=== PATIENT | female | born 1970 | race Caucasian/White ===

== ENCOUNTER → 2020-10-03 10:54 | Outpatient (CLI) | payer OTHER, SELFPAY ==
--- NOTE | ~2020-10-03 | MM_ITS ---
EXAMINATION: MM screening pantera BI w ney HISTORY: Screening TECHNIQUE: Craniocaudal and mediolateral oblique 3-D tomosynthesis images were obtained and synthetic 2-D images were generated. CAD analysis was submitted and interpreted. COMPARISON: Comparison to multiple prior studies sequentially, with oldest reviewed study dated 05/27. BREAST PARENCHYMAL COMPOSITION: The breasts are heterogeneously dense, which may obscure small masses . FINDINGS: There is no evidence of suspicious mass, calcification, or architectural distortion to sugg est malignancy in either breast. There has been no suspicious interval change. IMPRESSION: 1. No mammographic evidence of malignancy. 2. Recommend routine screening mammography in one year. BI-RADS Category 1: Negative Reviewed, dictated and finalized at location A.
== END ==
PROVIDERS: PCP Internal Medicine; Visit Provider Internal Medicine
DX: Z12.31 Encounter for screening mammogram for malignant neoplasm of breast (principal)
CPT/HCPCS: 77063; 77067

== ENCOUNTER 2021-04-13 15:37 | Observation (INO) | payer OTHER, SELFPAY ==
--- NOTE | ~2021-04-13 | XR_ITS ---
XR chest 1V portable DATE: 04/13/2021 17:28 INDICATION: Right lower quadrant abdominal pain. Nausea, vomiting, diarrhea. Headache. TECHNIQUE: Portable AP chest on 04/13/2021 at 1724 hours COMPARISON: None FINDINGS: Heart size is normal. No hilar or mediastinal enlargement. The lungs are hyperinflated but clear of infiltrate or consolidation. No pleural effusion or pulmonary vascular congestion or pneumot horax. IMPRESSION: Bilateral hyperinflation; no active cardiopulmonary disease Reviewed, dictated and finalized at location A. C STORE MANAGER
--- NOTE | ~2021-04-13 | CT_ITS ---
EXAMINATION: CT abdomen pelvis w con DATE: 04/13/2021 19:26 INDICATION: Right lower quadrant abdominal pain. Nausea, vomiting, diarrhea. TECHNIQUE: Computed tomography (CT) of the abdomen and pelvis was performed with 100 cc Omnipaque 350 intravenous contrast. Automated exposure control and iterative reconstruction technique were employe d. Exam dose: 272.82 mGy-cm total exam DLP. COMPARISON: None. FINDINGS: The lung bases are clear. Normal heart size. No pericardial or pleural effusion. There are occasional hepatic cysts measuring up to proxy 1.3 cm. The gallbladder is present. No gallb ladder wall thickening or pericholecystic fluid or fat stranding. No bile duct or pancreatic duct dil atation. Normal splenic size. No pancreatic mass lesion or calcification. Normal morphology of the adrenal glands. There is mild inhomogeneous enhancement of the right kidney and urothelial thickening of the right re nal pelvis and proximal right ureter suggesting possible pyelonephritis. There is moderate diffuse th ickening of the urinary bladder wall, suggesting possible cystitis.. Correlation with urinalysis is r ecommended. No urinary tract calculus or hydroureteronephrosis is detected. The uterus is present. There are prominent left adnexal vessels and left gonadal vein. Normal caliber of the abdominal aorta. No intraperitoneal or retroperitoneal or pelvic mass lesion or adenopathy or ascites. There are some fluid containing nondilated small bowel segments and occasional small bowel air-fluid levels which might represent mild adynamic ileus or enteritis. There is mild left and right colonic diverticulosis; no CT evidence of diverticulitis is noted. Normal appendix. No bowel obstruction or intraperitoneal free air is detected. There is a small amount of free fluid in the posterior cul-de-sac, possibly physiologic. Very small fat-containing umbilical hernia. Included skeletal structures are unremarkable. IMPRESSION: Bilateral heterogeneous enhancement of the right kidney and mild urothelial thickening o f the right renal pelvis and proximal ureter, suggesting possible acute pyelonephritis Possible cystitis; recommend clinical correlation, urinalysis Normal appendix Mild diverticulosis of left and right colon; no CT evidence of diverticulitis Occasional hepatic cysts Reviewed, dictated and finalized at Location [facility]. Reviewed, dictated and finalized at location A. CLERK IMPRESSION: Bilateral heterogeneous enhancement of the right kidney and mild u rothelial thickening of the right renal pelvis and proximal ureter, suggesting possible acute pyelonephritis Possible cystitis; recommend clinical correlation, urinalysis Normal appendix Mild diverticulosis of left and right colon; no CT evidence of diverticulitis Occasional hepatic cysts
[2021-04-13 15:54] VITALS: BP 92/50; PULSE 74; RESP 14; TEMP 36.4; O2SAT 99
[2021-04-13 17:33] LABS: Hemoglobin 12.7 g/dL (12.0-15.0); Mean Corpuscular HGB Conc 34.3 g/dl (32-36); Mean Corpuscular Hemoglobin 30.8 pg (26-34); Mean Corpuscular Volume 89.8 fl (80-100); Red Blood Count 4.12 M/mm3 (4.2-5.4); Red Cell Distribution Width 11.9 % (11.5-14.5); White Blood Count 14.1 K/mm3 (4.5-10.0)
[2021-04-13 17:34] LABS: Basophils Percent Auto 0.2 % (0.2-1.2); Eosinophils Percent Auto 0.2 % (0-4.4); Immature Granulocyte Absolute 0.06 K/mm3 (0.00-0.031); Immature Granulocyte Percent A 0.4 % (0-0.5); Lymphocytes Percent Auto 10.7 % (18.3-44.2); Mean Platelet Volume 9.5 fl (7.4-10.4); Monocytes Absolute Auto 1.2 K/mm3 (0.1-0.6); Monocytes Percent Auto 8.7 % (2.6-8.5); Neutrophils Absolute Auto 11.2 K/mm3 (1.3-6.7); Neutrophils Percent Auto 79.8 % (45.5-73.1); Platelet Count Result 268 k/mm3 (150-375)
[2021-04-13 17:46] LABS: Add Urine Microscopic? YES; Alanine Aminotransferase 14 U/L (4-35); Albumin Level 4.6 g/dL (3.5-5.1); Alkaline Phosphatase 93 U/L (38-126); Anion Gap 11 mmol/L (8-16); Appearance Urine Cloudy (Clear); Aspartate Amino Transferase 22 U/L (14-36); Bacteria Urine 2+ /hpf; Bilirubin Urine Negative (Negative); Bilirubin,Total 1.2 mg/dL (0.2-1.3); Blood Urea Nitrogen 10 mg/dL (7-17); Blood Urine 1+ (Negative); Calcium 9.1 mg/dL (8.4-10.2); Carbon Dioxide 26 mmol/L (22-30); Chloride 96 mmol/L (98-107); Color Urine Yellow (Yellow); Estimated CRCL calculation 78 ml/min; Estimated Glomerular Filt Rate > 60; Glucose 123 mg/dL (65-110); Glucose Urine UA Negative (Negative); Ketones Urine Negative (Negative); Leukocyte Esterase Ur 3+ LEU/UL (Negative); Lipase 37 U/L (23-300); Mucus Urine Rare /lpf; Nitrate Urine Positive (Negative); Potassium 3.4 mmol/L (3.4-5.0); Protein Urine 1+ mg/dL (Negative); Sodium 133 mmol/L (137-145); Specific Grav Ur 1.011 (1.001-1.035); Urobilinogen Urine Negative mg/dL (<2.0); WBC Urine >75 /hpf
[2021-04-13 17:47] VITALS: BP 80/47; PULSE 73; RESP 18; O2SAT 100
[2021-04-13] MEDS: ONDANSETRON INJ 4 MG/2 ML VIAL IV PUSH ×2 (17:51→21:01)
[2021-04-13] MEDS: SODIUM CHLORIDE 0.9% IV 1,000 ML 999 ML IV CONT ×2 (17:51)
[2021-04-13 18:35] LABS: Beta HCG Quantitative < 2.39 mIU/ML
--- NOTE | 2021-04-13 18:48 | ED.GENADULT ---
HPI - General Adult General Chief complaint: Abdominal Pain <Joey Pacheco PA-C - Last Filed: 04/13/21 21:26> Stated complaint: Abd pain, NVD <DOMINIC Reynaga Last Filed: 04/13/21 21:26> Time Seen by Provider: 04/13/21 16:56 <Joey Pacheco PA-C - Last Filed: 04/13/21 21:26> Source: patient <DOMINIC Reynaga Last Filed: 04/13/21 21:26> Mode of arrival: ambulatory <DOMINIC Reynaga Last Filed: 04/13/21 21:26> Limitations: no limitations <DOMINIC Reynaga Last Filed: 04/13/21 21:26> History of Present Illness HPI narrative: Patient is a 51-year-old female with chief complaint of 3 days of headache, nausea, vomiting, right lower quadrant abdominal pain. Patient reports the abdominal pain is intermittent. She denies any prior abdominal issues or surgeries. Patient denies eating or drinking change in her symptoms. Patient is not vaccinated against Covid. Patient has not received her flu shot. Patient denies chance of in reports tubal ligation. Patient reports he has naturally low BPs. <Joey Pacheco PA-C - Last Filed: 04/13/21 21:26> Related Data Home medications: Home Medications Medication Instructions Recorded Confirmed No Home Medications 04/13/21 04/13/21 <Joey Pacheco PA-C - Last Filed: 04/13/21 21:26> Allergies/adverse reactions: Allergies Allergy/AdvReac Type Severity Reaction Status Date / Time prednisone Allergy Rash Verified 04/13/21 17:51 <DOMINIC Reynaga Last Filed: 04/13/21 21:26> Review of Systems Review of Systems: CONSTITUTIONAL: Denies fever, chills, or sweats. EYES: Denies visual changes, redness, or discharge. ENT: Denies rhinorrhea, congestion, sore throat, or otalgia. CARDIOVASCULAR: Denies chest pain, palpitations, or edema. RESPIRATORY: Denies cough or dyspnea. GASTROINTESTINAL: Reports abdominal pain, nausea, vomiting, or diarrhea. GENITOURINARY: Denies dysuria or hematuria. SKIN: Denies rash or itching. MUSCULOSKELETAL: Denies back pain, joint pain, or myalgia. NEUROLOGIC: Reports headache, denies numbness, dizziness, or weakness. PSYCHIATRIC: Denies anxiety or depression. <Joey Pacheco PA-C - Last Filed: 04/13/21 21:26> Exam Narrative: GENERAL: Well-appearing, well-nourished, and in no acute distress. HEAD: Normocephalic, atraumatic. EYES: PERRLA and EOMI. CHEST: Clear to auscultation. No respiratory distress. No wheezes rales or rhonchi HEART: Regular rate and rhythm. No murmur heard. Normal peripheral pulses. ABDOMEN: Soft, mild tender to RLQ, no guarding or rebound, nondistended, normal active bowel sounds. EXTREMITIES: Normal range of motion. No edema. SKIN: Warm, dry, no rash. NEURO: No focal deficits. Alert and oriented x3. PSYCH: Normal mood and affect. <Joey Pacheco PA-C - Last Filed: 04/13/21 21:26> Course Vital Signs Vital signs: Vital Signs Temperature 36.4 C 04/13/21 15:54 Pulse Rate 74 04/13/21 15:54 Respiratory Rate 14 04/13/21 15:54 Blood Pressure 92/50 L 04/13/21 15:54 Pulse Oximetry 99 04/13/21 15:54 Temperature 36.4 C 04/13/21 15:54 Pulse Rate 65 04/13/21 19:00 Respiratory Rate 18 04/13/21 19:00 Blood Pressure 89/55 L 04/13/21 19:00 Pulse Oximetry 96 04/13/21 19:00 <Joey Pacheco PA-C - Last Filed: 04/13/21 21:26> Medical Decision Making MDM Narrative Medical decision making narrative: Discussed with patient UTI findings. Patient reports that she just finished a course of Bactrim and thought that her UTI had resolved. Patient also reports that she had been having pain in her upper flank that is not present currently but was present and causing her to vomit yesterday. Now concern for kidney stone or pyelonephritis. Discussed with patient the need for CT. initially she refused but now she is in agreement to perform CT after discussion of risk and benefits. CT shows suspected pyelo. Patient h
[2021-04-13 19:00] VITALS: BP 89/55; PULSE 65; RESP 18; O2SAT 96
[2021-04-13] MEDS: cefTRIAXone 2 GM in SODIUM CHLORIDE 0.9% IV 100 ML 200 ML IVPB (19:43)
[2021-04-13 22:00] VITALS: BP 85/41; PULSE 101; RESP 18; O2SAT 99
[2021-04-13 23:44] LABS: SARS-CoV-2 RNA PCR Negative
[2021-04-14] VITALS (7 sets, daily range): BP systolic 90–110; BP diastolic 47–66; PULSE 67–84; RESP 14–18; TEMP 35.8–36.6; O2SAT 98–100; BMI 23.0
[2021-04-14 00:40] LABS: Lactic Acid Reflex < 0.5 mmol/L (0.7-2.1)
[2021-04-14] MEDS: SODIUM CHLORIDE 0.9% IV 1,000 ML 125 ML IV CONT ×2 (01:16→16:27)
--- NOTE | 2021-04-14 04:04 | PM.IMHP ---
H&P: HPI History of Present Illness Date/Time: 04/14/21 00:30 Chief Complaint: Right lower abdominal pain Narrative: 51-year-old female previously healthy who presented to the ER with right lower quadrant abdominal pain. The patient reports that she initially began having symptoms on the when she having right lower abdomen. Then the following days she began having dysuria, increased urinary frequency and urinary urgency. She contacted her primary care physician who prescribed her Bactrim. She did not have her urine tested. She reported that her symptoms had initially improved and she completed her antibiotics on the . Unfortunately, the next day she began having dysuria again. It was also accompanied by nausea, vomiting and diarrhea. She called her primary care physician who directed her to come to the ER to be checked for possible appendicitis. By the time she arrived to the ER she is no longer having any right lower quadrant abdominal pain. She denied having any eliciting or relieving factors for her symptoms. She did have some chills on Saturday but has not had any since then. She has been afebrile since arrival to the ER. On arrival to the ER she was noted to be hypotensive with systolic blood pressures between 80 and 90. The patient reports that she chronically has low blood pressures in these ranges. She denies any lightheadedness with standing or any episodes of syncope. She reports that she will occasionally have a urinary tract infection but is been at least 3 years since her last urinary tract infection. She is not currently sexually active. Review of Systems Review of Systems: 12 systems were reviewed with pertinent positives and negatives per HPI. Except as documented in the HPI, all other systems were reviewed and are negative. 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 Smoking status: Never smoker Alcohol intake: never Substance use type: does not use Spiritual care concerns: No Meds Home Medications and Allergies Home Medications Medication Instructions Recorded Confirmed Type guaifenesin [Mucinex] 1,200 mg PO DAILY PRN 04/14/21 04/14/21 History loratadine-pseudoephedrine 1 tablet PO DAILY PRN 04/14/21 04/14/21 History [Claritin-D 12 Hour] Allergies Allergy/AdvReac Type Severity Reaction Status Date / Time prednisone Allergy Rash Verified 04/13/21 17:51 Vital Signs Vital Signs - 24 hr 04/13/21 15:54 04/13/21 17:47 04/13/21 19:00 Temperature 97.6 F Pulse Rate 74 73 65 Respiratory Rate 14 18 18 Blood Pressure 92/50 L 80/47 L 89/55 L Pulse Oximetry 99 100 96 04/13/21 22:00 04/14/21 01:41 Temperature Pulse Rate 101 H 84 Respiratory Rate 18 18 Blood Pressure 85/41 L 91/51 L Pulse Oximetry 99 100 Exam Narrative: PHYSICAL EXAM: WEIGHT 59.1 kg BMI 20.4 General: No acute distress, well-developed well-nourished HEENT: Mucous membranes are tacky, no oral pharyngeal erythema, no scleral icterus, pupils are equal and reactive Respiratory: Clear to auscultation bilaterally, no increased work of breathing, no CVA tenderness Cardiovascular: Regular rate, regular rhythm, 2+ bilateral radial pedal pulses Gastrointestinal: Soft, nontender, nondistended, positive bowel sounds Skin: Mild pallor, non jaundice Musculoskeletal: No clubbing, cyanosis or edema Neurological: Alert and oriented, speech is clear, no facial asymmetry Psychiatric: Appropriate mood and affect, pleasant and cooperative :
[2021-04-14] MEDS: ONDANSETRON INJ 4 MG/2 ML VIAL IV PUSH (05:48)
--- NOTE | 2021-04-14 07:25 | PC.NURSE ---
critical care unit manager has order pt room tray at [id number]
--- NOTE | 2021-04-14 07:53 | PC.NURSE ---
unit controller delivered room tray at 0745. pt is sleeping. pt asked to leave tray
[2021-04-14 09:20] LABS: Hematocrit 32.5 % (37.0-47.0); Hemoglobin 10.7 g/dL (12.0-15.0); Mean Corpuscular HGB Conc 32.9 g/dl (32-36); Mean Corpuscular Hemoglobin 29.8 pg (26-34); Mean Corpuscular Volume 90.5 fl (80-100); Mean Platelet Volume 9.4 fl (7.4-10.4); Platelet Count Result 222 k/mm3 (150-375); Red Blood Count 3.59 M/mm3 (4.2-5.4); Red Cell Distribution Width 11.9 % (11.5-14.5); White Blood Count 10.5 K/mm3 (4.5-10.0)
[2021-04-14] MEDS: ENOXAPARIN 40 MG/0.4 ML SYRINGE SUB-Q (09:27)
[2021-04-14 09:30] LABS: Anion Gap 6 mmol/L (8-16); Blood Urea Nitrogen 8 mg/dL (7-17); Calcium 8.3 mg/dL (8.4-10.2); Carbon Dioxide 23 mmol/L (22-30); Chloride 108 mmol/L (98-107); Estimated CRCL calculation 90 ml/min; Estimated Glomerular Filt Rate > 60; Glucose 145 mg/dL (65-110); Potassium 3.5 mmol/L (3.4-5.0); Sodium 137 mmol/L (137-145)
[2021-04-14] MEDS: ACETAMINOPHEN 325 MG TABLET 650 MG PO (13:13)
[2021-04-15] MEDS: SODIUM CHLORIDE 0.9% IV 1,000 ML 125 ML IV CONT ×2 (01:19→08:28)
[2021-04-15 03:25] VITALS: BP 105/49; PULSE 78; RESP 18; TEMP 36.2; O2SAT 100
[2021-04-15] MEDS: ENOXAPARIN 40 MG/0.4 ML SYRINGE SUB-Q (08:30)
--- NOTE | 2021-04-15 10:26 | PM.DS ---
DS: Admitting Diagnosis Discharge Date 04/15/2021 Admitting Diagnosis Right lower abdominal pain DS: Discharge Diagnosis Discharge Diagnosis (1) Pyelonephritis: Code(s): N12 - Tubulo-interstitial nephritis, not specified as acute or chronic Status: Acute Assessment and Plan: Right-sided pyelonephritis with failure of outpatient therapy with Bactrim. Received empiric antibiotic therapy with Rocephin Urine cultures-->Escherichia Coli Blood cultures NGTD, antibiotic therapy had already been administered IV fluid hydration. Labs stable Home with oral levaquin (2) Chronic asymptomatic hypotension: Code(s): I95.89 - Other hypotension Status: Acute Assessment and Plan: Patient remains asymptomatic BP 90s-100s/40s-60s DS: Summary Hospital Course Hospital Course: 51-year-old female previously healthy who presented to the ER with right lower quadrant abdominal pain. The patient reports that she initially began having symptoms on the when she having right lower abdomen. Then the following days she began having dysuria, increased urinary frequency and urinary urgency. She contacted her primary care physician who prescribed her Bactrim. She did not have her urine tested. She reported that her symptoms had initially improved and she completed her antibiotics on the . Unfortunately, the next day she began having dysuria again. It was also accompanied by nausea, vomiting and diarrhea. She called her primary care physician who directed her to come to the ER to be checked for possible appendicitis. By the time she arrived to the ER she is no longer having any right lower quadrant abdominal pain. She denied having any eliciting or relieving factors for her symptoms. She did have some chills on Saturday but has not had any since then. She has been afebrile since arrival to the ER. On arrival to the ER she was noted to be hypotensive with systolic blood pressures between 80 and 90. The patient reports that she chronically has low blood pressures in these ranges. She denies any lightheadedness with standing or any episodes of syncope. She reports that she will occasionally have a urinary tract infection but is been at least 3 years since her last urinary tract infection. She is not currently sexually active. The patient has improved overall and is stable for discharge. She has been advised to complete the course of antibiotics and follow up with her PCP within 2 weeks. Time Spent with Patient Time attestation: Total time spent providing and/or coordinating discharge services: Time spent: Greater than 30 minutes Exam Const: General: no acute distress, alert and awake Orientation/consciousness: patient oriented x3 HENMT: Head: normocephalic and atraumatic Ears: hearing grossly normal bilaterally and external ears normal Face and sinus: face symmetric Mouth: Yes Normal oral and palatal mucosa present Eyes: EOM: EOMs intact bilaterally Neck: Neck: full ROM, trachea midline and no JVD Resp: Effort & Inspection: normal respiratory effort Auscultation: clear to auscultation bilaterally Cardio: Jugular venous distension: no JVD Rate: regular rate Rhythm: regular rhythm Heart sounds: S1 normal heart sound present and S2 normal heart sound present GI: Inspection: normal to inspection GI Palp: Yes Soft to palpation Percussion: Yes normal to percussion Auscultation: normal bowel sounds : General: Yes no CVA tenderness Skin: General skin exam: normal color Rashes: no rashes Neuro: General: patient oriented x3 and no focal motor deficits Speech: normal speech Extrem: General: no clubbing, cyanosis or edema Psych: Appearance: grossly normal Affect: normal affect Judgement: Good judgement present (Psych) DS: Data Data Completed and Pending Labs on day of discharge: Preliminary micro results at discharge 04/14/21 00:18 Blood Culture - Preliminary Blood 04/14/21 00:18 Blood Cu
== END 2021-04-15 12:40 | disposition home or self-care (01) ==
LOC: ANHED 20:33 → ANH3MEDSUR 04-14 10:36 → ANH2MED 04-15 10:22 → ANH3MEDSUR 04-18 10:20
PROVIDERS: Physician Assistant; Admitting Provider Internal Medicine; Emergency Provider Emergency Medicine; PCP Internal Medicine; Visit Provider Family Medicine
DX: N10 Acute pyelonephritis (principal); B96.20 Unspecified Escherichia coli [E. coli] as the cause of diseases classified elsewhere; I95.89 Other hypotension; Z20.822 Contact with and (suspected) exposure to COVID-19
CPT/HCPCS: 36415; 71045; 74177; 80048; 80053; 81001; 83605; 83690; 84702; 85025; 85027; 87040; 87077; 87086; 87088; 87186; 87804; 96360; 96361; 96365; 96367; 96372; 96374; 96375; 96376; 99285; A9270; C9803; G0378; J0131; J0696; J1650; J2405; J7030; Q9967; U0003; U0005

== ENCOUNTER → 2022-01-13 08:41 | Outpatient (CLI) | payer OTHER, SELFPAY ==
--- NOTE | ~2022-01-13 | MM_ITS ---
EXAMINATION: MM screening pantera BI w ney HISTORY: Screening TECHNIQUE: Craniocaudal and mediolateral oblique 3-D tomosynthesis images were obtained and synthetic 2-D images were generated. CAD analysis was submitted and interpreted. COMPARISON: Comparison to multiple prior studies sequentially, with oldest reviewed study dated 05/27. BREAST PARENCHYMAL COMPOSITION: There are scattered areas of fibroglandular density. FINDINGS: There is no evidence of suspicious mass, calcification, or architectural distortion to sugg est malignancy in either breast. There has been no suspicious interval change. IMPRESSION: 1. No mammographic evidence of malignancy. 2. Recommend routine screening mammography in one year. BI-RADS Category 1: Negative Reviewed, dictated and finalized at location A.
== END ==
PROVIDERS: Visit Provider Internal Medicine
DX: Z12.31 Encounter for screening mammogram for malignant neoplasm of breast (principal)
CPT/HCPCS: 77063; 77067

== ENCOUNTER 2022-01-23 15:52 | Emergency (ER) | payer OTHER, SELFPAY ==
--- NOTE | ~2022-01-23 | XR_ITS ---
EXAMINATION: XR finger 3rd LT min 2V DATE: 01/23/2022 16:16 INDICATION: Left hand third digit swelling. TECHNIQUE: 3 views of left hand third digit were obtained. COMPARISON: None. FINDINGS: Bone alignment is normal. No fracture. There is mild osteoarthritis of third distal interph alangeal joint. IMPRESSION: 1. Mild osteoarthritis of third distal interphalangeal joint. Reviewed, dictated and finalized at location A. L SUPERVISOR
[2022-01-23 16:01] VITALS: BP 102/73; PULSE 73; RESP 16; TEMP 36.6; O2SAT 100
--- NOTE | 2022-01-23 16:27 | ED.EXTPRO ---
HPI - Extremity Problem General Chief complaint: Extremity Injury, Upper Stated complaint: lt hand middle finger injury Time Seen by Provider: 01/23/22 16:05 Source: patient Mode of arrival: ambulatory Limitations: no limitations History of Present Illness HPI Narrative: Ms. Jaye corona is a 51-year-old female patient presenting to clinic today with complaints of left 3rd finger swelling/pain. She denies any known injury. Reports that she woke up this morning with the swelling and discomfort. She is unable to fully extend or flex her 3rd finger Related Data Home Medications Medication Instructions Recorded Confirmed loratadine 5 mg-pseudoephedrine ER 1 tablet PO DAILY PRN Sinus 04/14/21 04/14/21 120 mg tablet,extended Symptoms release,12hr (Claritin-D 12 Hour) Allergies Allergy/AdvReac Type Severity Reaction Status Date / Time prednisone Allergy Rash Verified 04/13/21 17:51 Review of Systems Review of Systems: Pertinent positives per HPI. Patient denies any fever, chills, rash, headache, visual changes, dizziness, cough, runny nose, sore throat, shortness of breath, chest pain, palpitations, nausea, vomiting, diarrhea, constipation, abdominal pain, or any urinary issues. 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 Smoking status: Never smoker Alcohol intake: never Substance use type: does not use Spiritual care concerns: No Comments At the time of my signature, I reviewed and agree with the nursing past medical, surgical, social, and family history. There is no relevant family history pertinent to the patient complaint. Exam Narrative: General: Well-developed, well nourished, in no apparent distress Head: Normocephalic, atraumatic. Cardio: Regular rate and rhythm, s1 and s2 normal, no murmur appreciated. Resp: Clear to auscultation bilaterally, no rhonchi, rales, wheezing or rubs. Musculoskeletal: No deformity, redness and swelling noted to the left 3rd finger, tender to palpation over the PIP joint, limited range of motion of the left 3rd PIP joint due to swelling and pain, tender to palpation over the proximal palm, peripheral pulse strong, no cyanosis, normal gait and station Course Course Emergency Course: Portions of this record may have been created with voice recognition software. Level of Care: Express Care Visit Vital Signs Vital signs: Vital Signs Temperature 36.6 C 01/23/22 16:01 Pulse Rate 73 01/23/22 16:01 Respiratory Rate 16 01/23/22 16:01 Blood Pressure 102/73 01/23/22 16:01 Pulse Oximetry 100 01/23/22 16:01 Temperature 36.6 C 01/23/22 16:01 Pulse Rate 73 01/23/22 16:01 Respiratory Rate 16 01/23/22 16:01 Blood Pressure 102/73 01/23/22 16:01 Pulse Oximetry 100 01/23/22 16:01 Vital signs reviewed MDM - Extremity (Nontraumatic) MDM Narrative Medical decision making narrative: At the time of visit patient is resting comfortably on the exam table. X-ray was performed and shows osteoarthritis over the PIP joint. Supportive measures were discussed with the patient she voiced understanding of discharge instructions. Medrol Dosepak was sent in to her pharmacy. Reports that she has had Medrol Dosepak in the past without concerns Discharge Plan Discharge Clinical Impression: Osteoarthritis of finger Qualifiers: Laterality: left Qualified Code(s): M19.042 - Primary osteoarthritis, left hand Patient Disposition: Home, Self-Care Conditi
== END 2022-01-23 16:38 | disposition home or self-care (01) ==
PROVIDERS: Emergency Provider Nurse Practitioner Family; PCP Internal Medicine
DX: M19.042 Primary osteoarthritis, left hand (principal)
CPT/HCPCS: 73140; 99213; G0463

== ENCOUNTER 2023-11-04 15:08 | Outpatient (CLI) | payer BC, SELFPAY ==
--- NOTE | ~2023-11-04 | MM_ITS ---
EXAMINATION: MM screening pantera BI w ney HISTORY: Screening TECHNIQUE: Craniocaudal and mediolateral oblique 3-D tomosynthesis images were obtained and synthetic 2-D images were generated. CAD analysis was submitted and interpreted. COMPARISON: Comparison to multiple prior studies sequentially, with oldest reviewed study dated 11/28. BREAST PARENCHYMAL COMPOSITION: There are scattered areas of fibroglandular density. A FINDINGS: There is no evidence of suspicious mass, calcification, or architectural distortion to sugg est malignancy in either breast. There has been no suspicious interval change. IMPRESSION: 1. No mammographic evidence of malignancy. 2. Recommend routine screening mammography in one year. BI-RADS Category 1: Negative Reviewed, dictated and finalized at location B.
== END 2023-11-04 15:09 ==
LOC: MICIMG 15:09
PROVIDERS: PCP Internal Medicine; Visit Provider Internal Medicine
DX: Z12.31 Encounter for screening mammogram for malignant neoplasm of breast (principal)
CPT/HCPCS: 77063; 77067

== ENCOUNTER 2024-11-05 11:37 | Outpatient (CLI) | payer OTHER, SELFPAY ==
--- NOTE | ~2024-11-05 | MM_ITS ---
EXAMINATION: MM screening pantera BI w ney HISTORY: Screening mammogram TECHNIQUE: Craniocaudal and mediolateral oblique 3-D tomosynthesis images were obtained and synthetic 2-D images were generated. CAD analysis was submitted and interpreted. COMPARISON: 11/04/2023, 01/13/2022 BREAST PARENCHYMAL COMPOSITION:Not Dense. There are scattered areas of fibroglandular density. FINDINGS: No suspicious mass, calcification, or architectural distortion are identified in either breast to suggest malignancy. There has been no suspicious interval change. IMPRESSION: No mammographic evidence of malignancy. Recommend routine screening mammography in one year. BI-RADS Category 1: Negative Reviewed, dictated and finalized at location .
== END 2024-11-05 11:38 | disposition home or self-care (01) ==
LOC: MICIMG 11:39
PROVIDERS: PCP Internal Medicine; Visit Provider Internal Medicine
DX: Z12.31 Encounter for screening mammogram for malignant neoplasm of breast (principal)
CPT/HCPCS: 77063; 77067